=== PATIENT | male | born 1980 | race Caucasian/White ===

== ENCOUNTER → 2018-03-13 | Day surgery (SDC) | payer OTHER ==
[~2018-03-13] MED LIST: ALPR1TAB2 PO; IV RINGERS,LACTATED 1000ML 1,000 ML IV SCH; MELA3TAB2 PO; OMEP40CA5 PO; PROPOFOL 40 ML IV ONE
[2018-03-13 14:40] VITALS: BP 125/60
--- NOTE | 2018-03-17 15:08 | PATHOLOGY ---
[facility] Accession Number: [id number] . 01 Material submitted: . DUODENAL BIOPSY . 01 Clinical history: . Abdominal pain . 02 Diagnosis: Duodenum, biopsy. - Duodenal mucosa with intact villous architecture and no increase in intraepithelial lymphocytes. (MAP:at;03/17/2018) QTA03/17/2018 . 02 Electronically signed: . Lalo Mendes MD, Pathologist NPI- [id number] . 01 Gross description: . . Received in formalin labeled "Kevin Martinez, duodenal BX, rule out celiac," are 7 segments of alves soft tissue measuring 1.5 x 1.1 x 0.2 cm in aggregate dimensions and ranging from 0.4 to 0.5 cm in maximum dimension. The specimen is submitted entirely in cassette A1. (TSD; 03/14/2018) TOB/TOB . 02 Pathologist provided ICD-10: R10.9 . 02 CPT . 289189 Specimen Comment: A courtesy copy of this report has been sent to Specimen Comment: [phone]. Specimen Comment: Report sent to Performed at: 01 [facility] [address], [place], [place] [id number] MD Itz Hi MD Phone: [phone] Performed at: 02 [facility] [address] [place], [place] [id number] MD Pam Escamilla MD Phone: [phone]
== END | disposition home or self-care (01) ==
LOC: SURG 12:53
PROVIDERS: ATTEND Internal Medicine Gastroenterology
DX: K64.0 First degree hemorrhoids (principal); K29.50 Unspecified chronic gastritis without bleeding; K31.89 Other diseases of stomach and duodenum; F41.9 Anxiety disorder, unspecified; Z72.0 Tobacco use; Z79.899 Other long term (current) drug therapy; Z98.890 Other specified postprocedural states
CPT/HCPCS: 43239; 45378; 88305; J2704